=== PATIENT | male | born 1960 | race Hispanic/Latino ===

== ENCOUNTER 2021-10-04 06:33 | Day surgery (SDC) | payer OTHER ==
[2021-10-04 07:32] LABS: INR 0.87 (0.87-1.13)
[2021-10-04 07:33] LABS: Basophils # (Auto) 0.1 K/mm3 (0.0-0.1); Basophils % (Auto) 0.9 % (0.0-1.8); Eosinophils # (Auto) 0.2 K/mm3 (0.0-0.4); Eosinophils % (Auto) 1.9 % (0.0-4.3); Hematocrit 43.9 % (35.5-45.6); Hemoglobin 14.4 gm/dl (11.8-15.2); Lymphocytes # (Auto) 2.5 K/mm3 (1.2-5.4); Lymphocytes % (Auto) 25.2 % (13.4-35.0); Mean Corpuscular HGB Conc 33 % (32-34); Mean Corpuscular Volume 93 fl (84-94); Monocytes # (Auto) 1.1 K/mm3 (0.0-0.8); Platelet Count 209 K/mm3 (140-440); Red Blood Count 4.74 M/mm3 (3.65-5.03); Red Cell Distribution Width 15.3 % (13.2-15.2)
[2021-10-04 07:36] LABS: BUN/Creatinine Ratio 14; Blood Urea Nitrogen 13 mg/dL (9-20); Calcium 9.4 mg/dL (8.4-10.2); Hemolysis Index 1; Monocytes % (Auto) 10.8 % (0.0-7.3)
[2021-10-04] MEDS ORDERED: CLOPIDOGREL 75 MG TAB PO ONE (08:00)
[2021-10-04] MEDS ORDERED: HEPARIN/NS 5000 UNIT/500ML 1,000 ML IR ONE (08:10)
[2021-10-04] MEDS ORDERED: HEPARIN 10,000 UNITS/10 ML VIAL ONE (08:10)
[2021-10-04] MEDS ORDERED: VERAPAMIL 5 MG/2 ML INJ ONE (08:11)
[2021-10-04] MEDS ORDERED: NITROGLYCERIN SYRINGE 3 ML ONE (08:12)
[2021-10-04] MEDS: SODIUM CHLORIDE 0.9% 500 ML 500 ML IV SCH ×3 (08:18→15:06)
[2021-10-04] MEDS ORDERED: ASPIRIN 325 MG TAB ONE (08:33)
[2021-10-04] MEDS: MIDAZOLAM 2 MG/2 ML INJ ONE ×4 (08:50→09:12)
[2021-10-04] MEDS: LIDOCAINE (2%) 20 MG/1 ML VIAL 20 ML MDV INFILTRATI ONE ×3 (08:51→09:13)
[2021-10-04] MEDS: fentaNYL 100 MCG/2 ML INJ ONE ×4 (08:51→09:11)
[2021-10-04] MEDS ORDERED: ATROPINE 0.1% (1 MG/10 ML) CARDIAC SYRINGE ONE (09:52)
--- NOTE | 2021-10-04 11:05 | Cardiac Catherization Report ---
DATE OF PROCEDURE: 10/04/2021 REFERRING PHYSICIAN: Dr. Eleuterio Arguelles. INDICATIONS FOR PROCEDURE: The patient is an exceedingly pleasant 60-year-old gentleman with history of multiple MIs, multiple PCIs, obesity, hypertension, diabetes, presents after having further chest pain as well as abnormal nuclear stress test with apical ischemia, referred for left heart catheterization. Risks, benefits, potential alternatives explained at length prior to obtaining informed consent. PROCEDURE DETAIL: The patient was brought to dentures lab technician in a postabsorptive state, prepped and draped in sterile fashion. No real right radial pulse is identified and unable to gain right radial access. We chose a groin approach. An 8 mL of 2% lidocaine used to anesthetize the right groin. A 5-[place] sheath was used to cannulate the right common femoral artery via modified Seldinger technique. All exchanges performed to exchange a J-tip guidewire. A JL3.5 catheter was used to engage the left main. No dampening or ventricularization. Cineangiography performed in all projections. JR4 catheter used to cross the aortic valve under fluoroscopic guidance. Left ventriculography performed in 30-degree MEJIA and 30-degree BENINESE projections via hand injections, catheter flushed. Manual pullback performed with continuous pressure monitoring. Catheter used to engage the right coronary. No dampening or ventricularization. Cineangiography performed in all projections. Next, catheter removed from the body of wire, sheath removed. Manual pressure used to achieve hemostasis. DATA: Aortic pressure is 110/60, LV pressure is 110, LVEDP of 25 mmHg. Left ventriculography reveals preserved LV function, estimated ejection fraction of 55-60%. No evidence of aortic stenosis. CORONARY ANATOMY: This is a strongly right dominant system. Left main is a long vessel, no significant disease. Left circumflex is a small, mild nonobstructive disease identified. LAD is a moderate-sized vessel, courses anterior intergroove, wraps around the apex. A stent in the mid LAD is patent. There appears to be a 30-40% proximal LAD stenosis. Diagonal is mildly pinched, but ILEANA 3 flow throughout. Right coronary is a large vessel, aneurysmic in the proximal and distal segment; in the mid posterolateral branch, there appears to be a 99% stenosis. This is complex just after an aneurysmal area. ILEANA 3 flow was identified. I suspect this is the culprit vessel. I directly supervised the administration of moderate sedation with fentanyl and Versed from 9:04 a.m. to 9:30 a.m. No immediate complications identified. CONCLUSIONS: 1. Significant epicardial coronary artery disease as aforementioned, 99% mid right-sided PDA complex, post-aneurysmal segment, likely culprit vessel, 30-40% proximal LAD stenosis. 2. Normal LV function, estimated ejection fraction 55-60%. 3. No evidence of aortic stenosis. Given the complexity of this lesion, I believe we should be doing this at [facility]. The patient will be transferred as such. The patient is clinically stable at this point for transfer. Results of procedure explained to the patient and family. All questions were addressed. TID: [id number] RECEIPT: [id number] JOSE/DANNIELLE/MEDINA
--- NOTE | 2021-10-04 11:27 | Electrocardiograph Report ---
[facility] Test Date: 2021-10-04 Test Time: 07:25:32 Pat Name: MANNIE MITTAL Department: Room: Gender: M Maintenance Technician: DONNA : 1960 Requested By: LAZARO HAZEL Order Number: [id number] Reading MD: Lazaro Hazel Measurements Intervals [place] Rate: 63 P: 67 CO: 192 QRS: -55 QRSD: 113 T: 44 QT: 429 QTc: 439 Interpretive Statements Sinus rhythm Left anterior fascicular block Anterior infarct, old No previous ECG available for comparison Electronically Signed On 10-04-2021 11:27:10 EDT by Lazaro Hazel
[2021-10-04] MEDS ORDERED: oxyCODONE /ACETAMINOPHEN 5-325MG TAB PO ONE (12:00)
[2021-10-04] MEDS ORDERED: traMADol 50 MG TAB PO PRN (12:19)
[2021-10-04] MEDS ORDERED: HYDROcodone/ACETAMINOPHEN 5-325 MG TAB PO PRN (12:19)
[2021-10-04 15:55] VITALS: BP 119/43
--- NOTE | 2021-10-04 16:55 | Short Stay Summary ---
Short Stay Documentation Date of service: 10/04/21 - History H&P: obtained from office - Allergies and Medications Current Medications: Allergies penicillin Allergy (Intermediate, Verified 10/04/21 07:06) Rash lisinopril Allergy (Verified 10/04/21 07:06) Unknown Home Medications Medication Instructions Recorded Confirmed Last Taken Type Albuterol Mdi (or & Nicu Only) 2 puff INHALATION Q4H PRN 10/04/21 10/04/21 09/27/21 History [ProAir HFA Inhaler] 2 puffs Clopidogrel [Plavix] 75 mg PO DAILY 10/04/21 10/04/21 10/03/21 History 75 mg FLUoxetine [PROzac] 20 mg PO DAILY 10/04/21 10/04/21 10/03/21 History 20 mg Ipratropium/Albuterol Sulfate 3 ml INHALATION PRN PRN 10/04/21 10/04/21 09/13/21 History [DUONEB *Not for PRN Use*] 3 ml Levothyroxine Sodium [Euthyrox] 175 mcg PO DAILY 10/04/21 10/04/21 10/03/21 History 175 mcg Metoprolol [Lopressor TAB] 25 mg PO BID 10/04/21 10/04/21 10/03/21 History 25 mg Rosuvastatin Calcium [Crestor] 40 mg PO HS 10/04/21 10/04/21 10/03/21 History 40 mg Telmisartan [Micardis] 20 mg PO DAILY 10/04/21 10/04/21 10/03/21 History 20 mg - Brief post op/procedure progress note Date of procedure: 10/04/21 Pre-op diagnosis: Chest pain and abnormal nuclear stress test Post-op diagnosis: other (Coronary artery disease) Anesthesia: local Estimated blood loss: minimal - Hospital course Hospital course: Patient presents today for cardiac cath. Patient found to have significant epicardial coronary artery disease. Due to complexity of lesion patient to be transferred to [place] for further intervention - Disposition Condition at discharge: Good Disposition: [facility] - Discharge Diagnoses (1) Hypertension Status: Acute (2) Coronary artery disease Status: Acute (3) History of PA (myocardial infarction) Status: Acute (4) Diabetes Status: Acute (5) Obesity Status: Acute Short Stay Discharge Plan Activity: advance as tolerated Diet: low fat, low cholesterol, low salt Wound: keep clean and dry, per your surgeon's advice Follow up with: JUSTO LAN MD [Primary Care Provider] - 7 Days
== END 2021-10-04 16:15 | disposition critical access hospital (66) ==
LOC: CATHLABREC 06:33
PROVIDERS: ATTEND Internal Medicine
DX: R07.89 Other chest pain (principal); R94.39 Abnormal result of other cardiovascular function study; E66.9 Obesity, unspecified; I10 Essential (primary) hypertension; E11.9 Type 2 diabetes mellitus without complications; I25.10 Atherosclerotic heart disease of native coronary artery without angina pectoris; F17.210 Nicotine dependence, cigarettes, uncomplicated; I25.2 Old myocardial infarction; E78.00 Pure hypercholesterolemia, unspecified; J44.9 Chronic obstructive pulmonary disease, unspecified; E03.9 Hypothyroidism, unspecified; F32.9 Major depressive disorder, single episode, unspecified; Z88.0 Allergy status to penicillin; Z88.8 Allergy status to other drugs, medicaments and biological substances; Z79.899 Other long term (current) drug therapy; Z90.49 Acquired absence of other specified parts of digestive tract; Z98.890 Other specified postprocedural states; Z83.49 Family history of other endocrine, nutritional and metabolic diseases; Z82.49 Family history of ischemic heart disease and other diseases of the circulatory system; Z68.41 Body mass index [BMI] 40.0-44.9, adult
CPT/HCPCS: 36415; 80048; 85025; 85610; 85730; 93005; 93458; 99156; 99157; C1894; J1644; J1815; J2250; J3010; J3490; J7040; J0461; Q9967